=== PATIENT | male | born 1990 | race African-American/Black ===

== ENCOUNTER 2016-12-09 19:55 | Inpatient (IN) | payer OTHER ==
[2016-12-09 22:30] LABS: Urine Drugs of Abuse Note Disclamer
[2016-12-09 22:45] LABS: Bilirubin,Urine NEG (Negative); Blood,Urine LG (Negative); Ketones,Urine 20 mg/dL (Negative); Leukocyte Esterase,Urine NEG (Negative); Mucus,Urine FEW /HPF; Nitrite,Urine NEG (Negative); Urobilinogen,Urine < 2.0 mg/dL (<2.0)
[2016-12-09 23:13] LABS: Basophils % (Auto) 0.1 % (0.0-1.8); Hematocrit 53.1 % (35.5-45.6); Hemoglobin 17.4 gm/dl (11.8-15.2); Mean Corpuscular HGB Conc 33 % (32-34); Mean Corpuscular Hemoglobin 29 pg (28-32); Mean Corpuscular Volume 90 fl (84-94); Platelet Count 390 K/mm3 (140-440); Red Cell Distribution Width 14.2 % (13.2-15.2); White Blood Count 17.6 K/mm3 (4.5-11.0)
[2016-12-09 23:22] LABS: Alanine Aminotransferase 21 units/L (7-56); Albumin 4.9 g/dL (3.9-5); Albumin/Globulin Ratio 1.4 %; Alkaline Phosphatase 75 units/L (35-129); Anion Gap 23 mmol/L; BUN/Creatinine Ratio 25.38; Bilirubin,Total 0.6 mg/dL (0.1-1.2); Blood Urea Nitrogen 33 mg/dL (9-20); Calcium 9.1 mg/dL (8.4-10.2); Carbon Dioxide 22 mmol/L (22-30); Chloride 103.2 mmol/L (98-107); Glucose 129 mg/dL (75-100); Magnesium 2.8 mg/dL (1.7-2.3); Potassium 3.5 mmol/L (3.6-5.0); Sodium 145 mmol/L (137-145); Total Protein 8.3 g/dL (6.3-8.2)
[2016-12-09] MEDS ORDERED: NACL 0.9% 1000 ML 1,000 ML IV ONE (23:59)
[2016-12-10 00:07] LABS: Creatine Kinase MB 14.2 ng/mL (0.0-4.0)
--- NOTE | 2016-12-10 00:44 | Emergency Department Report ---
ED Altered Mental Status HPI - General Chief Complaint: Altered Mental Status Stated Complaint: GENERAL WEAKNESS Time Seen by Provider: 12/09/16 23:49 Source: patient Mode of arrival: Ambulatory Limitations: Language Barrier - History of Present Illness Initial Comments: 25 yo male with no sniffing a past medical history presents to the ER with altered mental status. Patient was found by his father today in the bed where he has soiled himself with urine and stool. Patient opens eyes, makes eye contact, and follows commands but would not speak. No further per history of present illness available at this time. - Related Data Allergies Allergy/AdvReac Type Severity Reaction Status Date / Time No Known Allergies Allergy Unverified 12/09/16 21:17 ED Review of Systems ROS: Stated complaint: GENERAL WEAKNESS Other details as noted in HPI Comment: Unobtainable due to pts medical conditions (ams, nonverbal) ED Past Medical Hx - Past Medical History Previous Medical History?: No - Surgical History Past Surgical History?: No - Social History Smoking Status: Current Every Day Smoker ED Physical Exam - General Limitations: Language Barrier - Other Other exam information: General: Patient is nonverbal Head exam: Atraumatic, normocephalic Eyes exam: Normal appearance, pupils equal reactive to light ENT: Dry mucous membrane Neck exam: Normal inspection, full range of motion, no meningismus nontender Respiratory exam: Clear to auscultation bilateral, no wheezes, rales, crackles Cardiovascular: Normal rate and rhythm, normal heart sounds Abdomen: Soft, nondistended, and nontender, with normal bowel sounds, no rebound, or guarding Extremity: Full range of motion normal inspection no deformity Back: Normal Inspection, full range of motion, no tenderness Neurologic: Alert, eyes open on command, will not speak, no facial droop, 5/5 upper extremity strength, equal 5/5 foot dorsiflexion, sensation intact Psychiatric: normal affect, normal mood Skin: Warm, dry, intact ED Course Vital Signs 12/09/16 12/09/16 12/09/16 21:11 22:06 22:10 Temperature 97.7 F Pulse Rate 134 H 113 H Respiratory 18 26 H 30 H Rate Blood Pressure 124/90 123/83 O2 Sat by Pulse 95 95 Oximetry - Reevaluation(s) Reevaluation #1: 12/10/16 02:28 Patient is seen to be responding more and was trying to speak to a family member at the bedside - Lab Data Result diagrams: 12/09/16 22:13 12/09/16 22:13 Lab Results 12/09/16 12/09/16 12/09/16 Range/Units 22:13 22:13 22:13 WBC 17.6 H (4.5-11.0) K/mm3 RBC 5.90 H (3.65-5.03) M/mm3 Hgb 17.4 H (11.8-15.2) gm/dl Hct 53.1 H (35.5-45.6) % MCV 90 (84-94) fl MCH 29 (28-32) pg MCHC 33 (32-34) % RDW 14.2 (13.2-15.2) % Plt Count 390 (140-440) K/mm3 Lymph % (Auto) 8.6 L (13.4-35.0) % Mineral % (Auto) 7.3 (0.0-7.3) % Eos % (Auto) 0.0 (0.0-4.3) % Baso % (Auto) 0.1 (0.0-1.8) % Lymph # 1.5 (1.2-5.4) K/mm3 Mineral # 1.3 H (0.0-0.8) K/mm3 Eos # 0.0 (0.0-0.4) K/mm3 Baso # 0.0 (0.0-0.1) K/mm3 Seg Neutrophils % 84.0 H (40.0-70.0) % Seg Neutrophils # 14.8 H (1.8-7.7) K/mm3 Sodium (137-145) mmol/L Potassium (3.6-5.0) mmol/L Chloride (98-107) mmol/L Carbon Dioxide (22-30) mmol/L Anion Gap mmol/L BUN (9-20) mg/dL Creatinine (0.8-1.5) mg/dL Estimated GFR ml/min BUN/Creatinine Ratio % Glucose (75-100) mg/dL Lactic Acid (0.7-2.0) mmol/L Calcium (8.4-10.2) mg/dL Magnesium (1.7-2.3) mg/dL Total Bilirubin (0.1-1.2) mg/dL AST (5-40) units/L ALT (7-56) units/L Alkaline Phosphatase (35-129) units/L Ammonia (25-60) umol/L Total Creatine Kinase (55-170) units/L CK-MB (CK-2) (0.0-4.0) ng/mL CK-MB (CK-2) Rel Index (0-4) Total Protein (6.3-8.2) g/dL Albumin (3.9-5) g/dL Albumin/Globulin Ratio % TSH (0.270-4.200) mlU/mL Urine Color Yellow (Yellow) Urine Turbidity Cloudy (Clear) Urine pH 5.0 (5.0-7.0) Ur Specific [place] 1.029 (1.003-1.030) Urine Protein 100 mg/dl (Negative) mg/dL Urine Glucose (UA) Neg (Negative) mg/dL Urine Ketones 20 (Negative) mg/dL Urine Blood Lg (Negative) Urine Nitrite Neg (Negative) Urine Bilirubin Neg (Negative) Urine Urobilinogen < 2.0 (<2.0) mg/dL Ur Leukocyte Esterase Neg (Negative) Urine WBC (Auto) 2.0 (0.0-6.0) /HPF Urine RBC (Auto) 4.0 (0.0-6.0) /HPF U Epithel Cells (Auto) < 1.0 (0-13.0) /HPF Amorphous Crystals Few Urine Mucus Few /HPF Salicylates (2.8-20.0) mg/dL Urine Opiates Screen Presumptive negative Urine Methadone Screen Presumptive negative Acetaminophen (10.0-30.0) ug/mL Ur Barbiturates Screen Presumptive negative Ur Phencyclidine Scrn Presumptive negative Ur Amphetamines Screen Presumptive negative U Benzodiazepines Scrn Presumptive negative Urine Cocaine Screen Presumptive positive U Marijuana (THC) Screen Presumptive negative Drugs of Abuse Note Disclamer Plasma/Serum Alcohol (0-0.07) gm% 12/09/16 12/09/16 12/09/16 Range/Units 22:13 22:13 22:13 WBC (4.5-11.0) K/mm3 RBC (3.65-5.03) M/mm3 Hgb (11.8-15.2) gm/dl Hct (35.5-45.6) % MCV (84-94) fl MCH (28-32) pg MCHC (32-34) % RDW (13.2-15.2) % Plt Count (140-440) K/mm3 Lymph % (Auto) (13.4-35.0) % Mineral % (Auto) (0.0-7.3) % Eos % (Auto) (0.0-4.3) % Baso % (Auto) (0.0-1.8) % Lymph # (1.2-5.4) K/mm3 Mineral # (0.0-0.8) K/mm3 Eos # (0.0-0.4) K/mm3 Baso # (0.0-0.1) K/mm3 Seg Neutrophils % (40.0-70.0) % Seg Neutrophils # (1.8-7.7) K/mm3 Sodium 145 (137-145) mmol/L Potassium 3.5 L (3.6-5.0) mmol/L Chloride 103.2 (98-107) mmol/L Carbon Dioxide 22 (22-30) mmol/L Anion Gap 23 mmol/L BUN 33 H (9-20) mg/dL Creatinine 1.3 (0.8-1.5) mg/dL Estimated GFR > 60 ml/min BUN/Creatinine Ratio 25.38 % Glucose 129 H (75-100) mg/dL Lactic Acid 2.1 H* (0.7-2.0) mmol/L Calcium 9.1 (8.4-10.2) mg/dL Magnesium 2.8 H (1.7-2.3) mg/dL Total Bilirubin 0.6 (0.1-1.2) mg/dL AST 55 H (5-40) units/L ALT 21 (7-56) units/L Alkaline Phosphatase 75 (35-129) units/L Ammonia (25-60) umol/L Total Creatine Kinase (55-170) units/L CK-MB (CK-2) (0.0-4.0) ng/mL CK-MB (CK-2) Rel Index (0-4) Total Protein 8.3 H (6.3-8.2) g/dL Albumin 4.9 (3.9-5) g/dL Albumin/Globulin Ratio 1.4 % TSH 0.099 L (0.270-4.200) mlU/mL Urine Color (Yellow) Urine Turbidity (Clear) Urine pH (5.0-7.0) Ur Specific [place] (1.003-1.030) Urine Protein (Negative) mg/dL Urine Glucose (UA) (Negative) mg/dL Urine Ketones (Negative) mg/dL Urine Blood (Negative) Urine Nitrite (Negative) Urine Bilirubin (Negative) Urine Urobilinogen (<2.0) mg/dL Ur Leukocyte Esterase (Negative) Urine WBC (Auto) (0.0-6.0) /HPF Urine RBC (Auto) (0.0-6.0) /HPF U Epithel Cells (Auto) (0-13.0) /HPF Amorphous Crystals Urine Mucus /HPF Salicylates (2.8-20.0) mg/dL Urine Opiates Screen Urine Methadone Screen Acetaminophen (10.0-30.0) ug/mL Ur Barbiturates Screen Ur Phencyclidine Scrn Ur Amphetamines Screen U Benzodiazepines Scrn Urine Cocaine Screen U Marijuana (THC) Screen Drugs of Abuse Note Plasma/Serum Alcohol (0-0.07) gm% 12/09/16 12/09/16 12/09/16 Range/Units 22:13 22:13 22:13 WBC (4.5-11.0) K/mm3 RBC (3.65-5.03) M/mm3 Hgb (11.8-15.2) gm/dl Hct (35.5-45.6) % MCV (84-94) fl MCH (28-32) pg MCHC (32-34) % RDW (13.2-15.2) % Plt Count (140-440) K/mm3 Lymph % (Auto) (13.4-35.0) % Mineral % (Auto) (0.0-7.3) % Eos % (Auto) (0.0-4.3) % Baso % (Auto) (0.0-1.8) % Lymph # (1.2-5.4) K/mm3 Mineral # (0.0-0.8) K/mm3 Eos # (0.0-0.4) K/mm3 Baso # (0.0-0.1) K/mm3 Seg Neutrophils % (40.0-70.0) % Seg Neutrophils # (1.8-7.7) K/mm3 Sodium (137-145) mmol/L Potassium (3.6-5.0) mmol/L Chloride (98-107) mmol/L Carbon Dioxide (22-30) mmol/L Anion Gap mmol/L BUN (9-20) mg/dL Creatinine (0.8-1.5) mg/dL Estimated GFR ml/min BUN/Creatinine Ratio % Glucose (75-100) mg/dL Lactic Acid (0.7-2.0) mmol/L Calcium (8.4-10.2) mg/dL Magnesium (1.7-2.3) mg/dL Total Bilirubin (0.1-1.2) mg/dL AST (5-40) units/L ALT (7-56) units/L Alkaline Phosphatase (35-129) units/L Ammonia (25-60) umol/L Total Creatine Kinase (55-170) units/L CK-MB (CK-2) (0.0-4.0) ng/mL CK-MB (CK-2) Rel Index (0-4) Total Protein (6.3-8.2) g/dL Albumin (3.9-5) g/dL Albumin/Globulin Ratio % TSH (0.270-4.200) mlU/mL Urine Color (Yellow) Urine Turbidity (Clear) Urine pH (5.0-7.0) Ur Specific [place] (1.003-1.030) Urine Protein (Negative) mg/dL Urine Glucose (UA) (Negative) mg/dL Urine Ketones (Negative) mg/dL Urine Blood (Negative) Urine Nitrite (Negative) Urine Bilirubin (Negative) Urine Urobilinogen (<2.0) mg/dL Ur Leukocyte Esterase (Negative) Urine WBC (Auto) (0.0-6.0) /HPF Urine RBC (Auto) (0.0-6.0) /HPF U Epithel Cells (Auto) (0-13.0) /HPF Amorphous Crystals Urine Mucus /HPF Salicylates < 0.3 L (2.8-20.0) mg/dL Urine Opiates Screen Urine Methadone Screen Acetaminophen < 15.0 (10.0-30.0) ug/mL Ur Barbiturates Screen Ur Phencyclidine Scrn Ur Amphetamines Screen U Benzodiazepines Scrn Urine Cocaine Screen U Marijuana (THC) Screen Drugs of Abuse Note Plasma/Serum Alcohol < 0.01 (0-0.07) gm% 12/09/16 12/09/16 12/10/16 Range/Units 22:13 22:49 00:07 WBC (4.5-11.0) K/mm3 RBC (3.65-5.03) M/mm3 Hgb (11.8-15.2) gm/dl Hct (35.5-45.6) % MCV (84-94) fl MCH (28-32) pg MCHC (32-34) % RDW (13.2-15.2) % Plt Count (140-440) K/mm3 Lymph % (Auto) (13.4-35.0) % Mineral % (Auto) (0.0-7.3) % Eos % (Auto) (0.0-4.3) % Baso % (Auto) (0.0-1.8) % Lymph # (1.2-5.4) K/mm3 Mineral # (0.0-0.8) K/mm3 Eos # (0.0-0.4) K/mm3 Baso # (0.0-0.1) K/mm3 Seg Neutrophils % (40.0-70.0) % Seg Neutrophils # (1.8-7.7) K/mm3 Sodium (137-145) mmol/L Potassium (3.6-5.0) mmol/L Chloride (98-107) mmol/L Carbon Dioxide (22-30) mmol/L Anion Gap mmol/L BUN (9-20) mg/dL Creatinine (0.8-1.5) mg/dL Estimated GFR ml/min BUN/Creatinine Ratio % Glucose (75-100) mg/dL Lactic Acid 1.6 (0.7-2.0) mmol/L Calcium (8.4-10.2) mg/dL Magnesium (1.7-2.3) mg/dL Total Bilirubin (0.1-1.2) mg/dL AST (5-40) units/L ALT (7-56) units/L Alkaline Phosphatase (35-129) units/L Ammonia 55.0 (25-60) umol/L Total Creatine Kinase 4112 H (55-170) units/L CK-MB (CK-2) 14.2 H (0.0-4.0) ng/mL CK-MB (CK-2) Rel Index 0.3 (0-4) Total Protein (6.3-8.2) g/dL Albumin (3.9-5) g/dL Albumin/Globulin Ratio % TSH (0.270-4.200) mlU/mL Urine Color (Yellow) Urine Turbidity (Clear) Urine pH (5.0-7.0) Ur Specific [place] (1.003-1.030) Urine Protein (Negative) mg/dL Urine Glucose (UA) (Negative) mg/dL Urine Ketones (Negative) mg/dL Urine Blood (Negative) Urine Nitrite (Negative) Urine Bilirubin (Negative) Urine Urobilinogen (<2.0) mg/dL Ur Leukocyte Esterase (Negative) Urine WBC (Auto) (0.0-6.0) /HPF Urine RBC (Auto) (0.0-6.0) /HPF U Epithel Cells (Auto) (0-13.0) /HPF Amorphous Crystals Urine Mucus /HPF Salicylates (2.8-20.0) mg/dL Urine Opiates Screen Urine Methadone Screen Acetaminophen (10.0-30.0) ug/mL Ur Barbiturates Screen Ur Phencyclidine Scrn Ur Amphetamines Screen U Benzodiazepines Scrn Urine Cocaine Screen U Marijuana (THC) Screen Drugs of Abuse Note Plasma/Serum Alcohol (0-0.07) gm% 12/10/16 Range/Units 00:20 WBC (4.5-11.0) K/mm3 RBC (3.65-5.03) M/mm3 Hgb (11.8-15.2) gm/dl Hct (35.5-45.6) % MCV (84-94) fl MCH (28-32) pg MCHC (32-34) % RDW (13.2-15.2) % Plt Count (140-440) K/mm3 Lymph % (Auto) (13.4-35.0) % Mineral % (Auto) (0.0-7.3) % Eos % (Auto) (0.0-4.3) % Baso % (Auto) (0.0-1.8) % Lymph # (1.2-5.4) K/mm3 Mineral # (0.0-0.8) K/mm3 Eos # (0.0-0.4) K/mm3 Baso # (0.0-0.1) K/mm3 Seg Neutrophils % (40.0-70.0) % Seg Neutrophils # (1.8-7.7) K/mm3 Sodium (137-145) mmol/L Potassium (3.6-5.0) mmol/L Chloride (98-107) mmol/L Carbon Dioxide (22-30) mmol/L Anion Gap mmol/L BUN (9-20) mg/dL Creatinine (0.8-1.5) mg/dL Estimated GFR ml/min BUN/Creatinine Ratio % Glucose (75-100) mg/dL Lactic Acid 1.6 (0.7-2.0) mmol/L Calcium (8.4-10.2) mg/dL Magnesium (1.7-2.3) mg/dL Total Bilirubin (0.1-1.2) mg/dL AST (5-40) units/L ALT (7-56) units/L Alkaline Phosphatase (35-129) units/L Ammonia (25-60) umol/L Total Creatine Kinase (55-170) units/L CK-MB (CK-2) (0.0-4.0) ng/mL CK-MB (CK-2) Rel Index (0-4) Total Protein (6.3-8.2) g/dL Albumin (3.9-5) g/dL Albumin/Globulin Ratio % TSH (0.270-4.200) mlU/mL Urine Color (Yellow) Urine Turbidity (Clear) Urine pH (5.0-7.0) Ur Specific [place] (1.003-1.030) Urine Protein (Negative) mg/dL Urine Glucose (UA) (Negative) mg/dL Urine Ketones (Negative) mg/dL Urine Blood (Negative) Urine Nitrite (Negative) Urine Bilirubin (Negative) Urine Urobilinogen (<2.0) mg/dL Ur Leukocyte Esterase (Negative) Urine WBC (Auto) (0.0-6.0) /HPF Urine RBC (Auto) (0.0-6.0) /HPF U Epithel Cells (Auto) (0-13.0) /HPF Amorphous Crystals Urine Mucus /HPF Salicylates (2.8-20.0) mg/dL Urine Opiates Screen Urine Methadone Screen Acetaminophen (10.0-30.0) ug/mL Ur Barbiturates Screen Ur Phencyclidine Scrn Ur Amphetamines Screen U Benzodiazepines Scrn Urine Cocaine Screen U Marijuana (THC) Screen Drugs of Abuse Note Plasma/Serum Alcohol (0-0.07) gm% - EKG Data -: EKG Interpreted by Me (sinus tach 119 rightward axis) - Radiology Data Radiology results: report reviewed (ct head: naf) - Medical Decision Making Patient will be admitted to the hospital for altered mental status. Only significant finding is positive UDS for cocaine, elevated CKs, and dehydration. IV fluids initiated. - Differential Diagnosis intracranial hemorrhage, intracranial mass, encephalopathy, drug use Critical Care Time: No Critical care attestation.: If time is entered above; I have spent that time in minutes in the direct care of this critically ill patient, excluding procedure time. ED Disposition Clinical Impression: Altered mental state, Elevated CK, Cocaine abuse, Dehydration, Low TSH level Disposition: OP ADMITTED IP TO THIS HOSP Is pt being admited?: Yes Condition: Stable Time of Disposition: 02:29 (Dr Guan/hosp)
--- NOTE | 2016-12-10 01:12 | Cat Scan Report ---
FINAL REPORT EXAM: CT HEAD/BRAIN WO CON HISTORY: ams COMPARISON: None available. TECHNIQUE: Axial images obtained skull base through vertex. FINDINGS: No acute intracranial hemorrhage, midline shift or pathologic extra axial fluid collection. Ventricles and cisterns are normal in size and configuration for the patient's age. Cortez-white differentiation preserved. Calvarium grossly intact. Focal prominence of the extra-axial CSF space along the right parietal cortex. There may be underlying arachnoid cyst measuring 1.1 x 0.9 centimeters. Mild to moderate mucosal thickening the visualized paranasal sinuses. Mastoid air cells are clear. Visualized orbits are grossly unremarkable. IMPRESSION: No grossly acute intracranial abnormality. Focal prominence of the extra-axial CSF space along the right parietal convexity. Probable underlying arachnoid cyst measuring 1.1 x 0.9 centimeters, benign finding.
--- NOTE | 2016-12-10 03:47 | Admit Criteria Form ---
Admission Criteria Documentation: SUBSTANCE ABUSE Clinical Indications for Admission to Inpatient Care (Place 'X' for any and all applicable criteria): Admission is indicated due to ANY ONE of the following(1)(2)(3)(4)(5): [ ]I. Delirium due to alcohol or sedative A withdrawal B ( Also use Delirium Criteria as appropriate)1,6,7 [ ]II. Alcohol or sedative withdrawal with high-risk indicator as manifested by ALL of the following1,3,6,7 [ ]a) Signs of withdrawal as indicated by ANY ONE of the following: [ ]i) Heart rate greater than 100 beats per minute [ ]ii) Nausea or vomiting [ ]iii) Other physical signs of alcohol or sedative withdrawal [ ]iv) Tremor [ ](v) Increased perspiration [ ]b) Elevated risk due to a historical or comorbid factor as indicated by ANY ONE of the following: [ ]i) History of delirium due to alcohol or sedative withdrawal [ ]ii) History of repetitive seizures due to alcohol or sedative withdrawal C [ ]iii) Intrinsic seizure disorder (epilepsy) [ ]iv) [ ]v) Comorbid medical condition that can be dangerously destabilized by alcohol or sedative withdrawal (eg, severe cardiac disease) [ ]III. Severe alcohol or sedative withdrawal that is unmanageable at lower level of care, as manifested by ALL of the following1,3,6,7 [ ]a) Marked signs of withdrawal as indicated by ANY ONE of the following: [ ]i) Heart rate greater than 120 beats per minute [ ]ii) Vomiting [ ]iii) Grossly visible tremor [ ]iv) Profuse perspiration [ ]v) Temperature greater than 38.3 degrees C (101 degrees F) [ ]vi) Other marked physical signs of alcohol or sedative withdrawal [ ]b) Signs of withdrawal which require inpatient treatment as indicated by ANY ONE of the following: [ ]i) Inadequate response to pharmacotherapy in emergency department or other appropriate lower level of care [ ]ii) Lower level of care not feasible or appropriate (eg, unavailable or inappropriate to patient condition or treatment history) [ ]IV. Severely complicated opioid withdrawal that requires [id number] care as manifested by ALL of the following 1,4,7,11 [ ]a) Vomiting or diarrhea due to opioid withdrawal [ ]b) Marked dehydration or electrolyte abnormality that cannot be corrected (to near normal) in an emergency department or other ambulatory setting (eg, serum K<2.5 mEq/L , serum Na <130 mEq/L [ X]V. Acute toxicity or instability from substance use requiring inpatient care (eg, altered mental status, respiratory depression) that has had inadequate response to, or is judged inappropriate for, treatment at lower level of care (eg, emergency department, observation care) [ ]. Other inpatient medical or psychiatric care is needed due to risk or comorbidity as indicated by ALL of the following(18): [ ]a) Treatment is needed because of patient risk due to ANY ONE of the following: [ ]i) Medical condition (eg, severe cardiac disease) that requires 24-hour monitoring and treatment due to danger of destabilization by alcohol or sedative withdrawal is present [ ]ii) Imminent danger to self is present due to ANY ONE of the following(19)(20)(21): [ ]1) Imminent risk for recurrence of Suicide attempt or act of serious Harm to self is present as indicated by ALL of the following: [ ]A. There has been very recent Suicide attempt or deliberate act of serious Harm to self. [ ]B. There has not been Sufficient relief of the factors that precipitated the attempt or act. [ ]2) Current plan for suicide or serious Harm to self is present. [ ]3) Command auditory hallucinations for suicide or serious Harm to self are present. [ ]4) Patient has persistent Thoughts of suicide or serious Harm to self that cannot be adequately monitored at lower level of care due to ANY ONE of the following[E]: [ ]A. Insufficient behavioral care is available to meet patient needs (such as required provider or lower level facility is not available). [ ]B. Patient characteristics such as high impulsivity or unreliability are present. [ ]C. Environment does not support recovery. [ ]D. Ready access to lethal means [ ]iii) Imminent danger to others is present due to ANY ONE of the following(19)(23)(24): [ ]1) Imminent risk for recurrence of attempt to seriously Harm another is present as indicated by ALL of the following: [ ]A. There has been very recent attempt to seriously Harm another. [ ]B. There has not been Sufficient relief of factors that precipitated the attempt or act. [ ]2) Current plan for homicide or serious Harm to another is present. [ ]3) Command auditory hallucinations or paranoid delusions contributing to risk for homicide or serious Harm to another are present. [ ]4) Patient has persistent thoughts of homicide or serious Harm to another that cannot be adequately monitored at lower level of care because of ANY ONE of the following[E]: [ ]A. Insufficient behavioral care is available to meet patient needs (such as required provider or lower level facility is not available). [ ]B. High impulsivity or unreliability is present. [ ]C. Environment does not support recovery. [ ]D. Ready access to lethal means [ ]iv) Severe dysfunction in daily living related to substance use disorder as indicated by ANY ONE of the following(33): [ ]a) Extreme deterioration in social interactions (eg , threatening behaviors with little or no provocation) [ ]b) Complete withdrawal from all social interactions [ ]c) Complete neglect of self-care with associated impairment in physical status [ ]d) Extreme disruption in vegetative function (eg, life-sustaining functions such as eating) [ ]e) Complete inability to maintain any appropriate aspect of personal responsibility in any adult roles (eg, occupational, parental ) [ ]v) Other emotional, behavioral, or cognitive symptoms of sufficient severity to preclude ability to engage in recovery without 24-hour monitoring and treatment are present. [ ]vi) Patient requires monitoring due to substance use in combination with medical, psychiatric, or environmental factors that prevent adequate management at lower level of care as indicated by ALL of the following: [ ]1) Significant substance use effects, medical conditions, or psychiatric comorbidities are present as indicated by ANY ONE of the following [ ]A. Substance toxicity or withdrawal requires medical monitoring. [ ]B. Medical comorbidity requires medical monitoring for destabilization due to alcohol or sedative withdrawal. [ ]C. Emotional, behavioral, or cognitive symptoms of sufficient severity to limit or preclude ability to engage in treatment are present. [ ]2) Conditions, barriers, or environmental factors preventing treatment at lower level of care are present as indicated by ANY ONE of the following: [ ]A. Psychiatric comorbidity or opposition to treatment requires 24-hour setting to ensure adherence with medical treatment or adequate motivating interventions. [ ]B. Severe behavioral problems (eg, escalating relapse behaviors, acute psychiatric or substance use crisis, inability to recognize signs and symptoms of relapse ) require 24-hour setting for relapse prevention.[F] [ ]C. Living environment outside of 24-hour setting prevents recovery (eg, abuse, victimization, patient inability to cope). [ ]b Treatment situation and needs are appropriate for inpatient level ( instead of using lower level of care) as indicated by ANY ONE of the following( 25)(26)(27): [ ]i) Patient is unwilling to participate voluntarily and requires treatment (eg, legal commitment) in involuntary unit.(23) [ ]ii) Voluntary treatment at lower level is not feasible (eg, lower level care unavailable or inappropriate for patient condition). [ ]iii) Physical restraint, seclusion, or other involuntary control is needed (eg, actively violent patient for whom treatment in an involuntary unit is deemed necessary in accord with applicable medical and legal criteria).(23) [ ]iv) [id number] medical or nursing care to address symptoms and initiate interventions is required; specific need is identified. Extended stay beyond goal length of stay may be needed for: [ ]a) Onset of delirium [ ]b) Recurrent seizures [ ]c) Persistent severe alcohol or sedative withdrawal [ ]d) Persistent dangerous behavior The original [facility] [employer] content created by [employer] has been revised. The portions of the content which have been revised are identified through the use of italic text or in bold, and [facility] has neither reviewed nor approved the modified material. All other unmodified content is copyright [facility] Please see references footnoted in the original [facility] [employer] edition 2016 Admission Criteria Met: Yes
--- NOTE | 2016-12-10 06:16 | History and Physical Report ---
History of Present Illness Date of examination: 12/10/16 Date of admission: 12/10/16 02:30 Chief complaint: AMS History of present illness: 25-year-old Frisian male with no significant past medical history brought by his family after they found out that he was altered lying on bed recent afternoon. Patient was not able to communicate. Per his families the patient was healthy before this incident. When I examined him he follow commands but not able to talk. Past History Past Medical History: No medical history Past Surgical History: No surgical history Social history: smoking, full code, other (cocaine abuse) Family history: denies: cancer, stroke Medications and Allergies Allergies Allergy/AdvReac Type Severity Reaction Status Date / Time No Known Allergies Allergy Verified 12/10/16 06:09 Active Meds: Active Medications Sodium Chloride (Nacl 0.9% 1000 Ml) 1,000 mls @ 150 mls/hr IV DIRECT [facility] Review of Systems ROS unobtainable: due to mental status (couldn't obtained because of ams) Cardiovascular: no chest pain, no orthopnea Exam - Physical Exam Narrative exam: Not in cardiopulmonary distress. The patient appeared emaciated. Vital signs as documented. Head exam is unremarkable. No scleral icterus . Neck is without jugular venous distension, thyromegaly, or carotid bruits. Lungs are clear to auscultation. Cardiac exam reveals regular rate and Rhythm. First and second heart sounds normal. No murmurs, rubs or gallops. Abdominal exam reveals normal bowel sounds, no masses, no organomegaly and no aortic enlargement. Extremities are nonedematous and both femoral and pedal pulses are normal. REPATCHER: Alert but not able communicate. No focal weakness. - Constitutional Vitals: Temp Pulse Resp BP Pulse Ox 99.2 F 107 H 22 129/78 97 12/10/16 05:00 12/10/16 05:28 12/10/16 05:28 12/10/16 05:00 12/10/16 05:00 Results - Labs CBC & Chem 7: 12/09/16 22:13 12/09/16 22:13 Labs: Laboratory Last Values WBC 17.6 K/mm3 (4.5-11.0) H 12/09/16 22:13 RBC 5.90 M/mm3 (3.65-5.03) H 12/09/16 22:13 Hgb 17.4 gm/dl (11.8-15.2) H 12/09/16 22:13 Hct 53.1 % (35.5-45.6) H 12/09/16 22:13 MCV 90 fl (84-94) 12/09/16 22:13 MCH 29 pg (28-32) 12/09/16 22:13 MCHC 33 % (32-34) 12/09/16 22:13 RDW 14.2 % (13.2-15.2) 12/09/16 22:13 Plt Count 390 K/mm3 (140-440) 12/09/16 22:13 Lymph % (Auto) 8.6 % (13.4-35.0) L 12/09/16 22:13 [place] % (Auto) 7.3 % (0.0-7.3) 12/09/16 22:13 Eos % (Auto) 0.0 % (0.0-4.3) 12/09/16 22:13 Baso % (Auto) 0.1 % (0.0-1.8) 12/09/16 22:13 Lymph # 1.5 K/mm3 (1.2-5.4) 12/09/16 22:13 [place] # 1.3 K/mm3 (0.0-0.8) H 12/09/16 22:13 Eos # 0.0 K/mm3 (0.0-0.4) 12/09/16 22:13 Baso # 0.0 K/mm3 (0.0-0.1) 12/09/16 22:13 Seg Neutrophils % 84.0 % (40.0-70.0) H 12/09/16 22:13 Seg Neutrophils # 14.8 K/mm3 (1.8-7.7) H 12/09/16 22:13 Sodium 145 mmol/L (137-145) 12/09/16 22:13 Potassium 3.5 mmol/L (3.6-5.0) L 12/09/16 22:13 Chloride 103.2 mmol/L (98-107) 12/09/16 22:13 Carbon Dioxide 22 mmol/L (22-30) 12/09/16 22:13 Anion Gap 23 mmol/L 12/09/16 22:13 BUN 33 mg/dL (9-20) H 12/09/16 22:13 Creatinine 1.3 mg/dL (0.8-1.5) 12/09/16 22:13 Estimated GFR > 60 ml/min 12/09/16 22:13 BUN/Creatinine Ratio 25.38 % 12/09/16 22:13 Glucose 129 mg/dL (75-100) H 12/09/16 22:13 Lactic Acid 1.6 mmol/L (0.7-2.0) 12/10/16 00:20 Calcium 9.1 mg/dL (8.4-10.2) 12/09/16 22:13 Magnesium 2.8 mg/dL (1.7-2.3) H 12/09/16 22:13 Total Bilirubin 0.6 mg/dL (0.1-1.2) 12/09/16 22:13 AST 55 units/L (5-40) H 12/09/16 22:13 ALT 21 units/L (7-56) 12/09/16 22:13 Alkaline Phosphatase 75 units/L (35-129) 12/09/16 22:13 Ammonia 55.0 umol/L (25-60) 12/10/16 00:07 Total Creatine Kinase 4112 units/L (55-170) H 12/09/16 22:13 CK-MB (CK-2) 14.2 ng/mL (0.0-4.0) H 12/09/16 22:13 CK-MB (CK-2) Rel Index 0.3 (0-4) 12/09/16 22:13 Total Protein 8.3 g/dL (6.3-8.2) H 12/09/16 22:13 Albumin 4.9 g/dL (3.9-5) 12/09/16 22:13 Albumin/Globulin Ratio 1.4 % 12/09/16 22:13 TSH 0.099 mlU/mL (0.270-4.200) L 12/09/16 22:13 Thyroxine (T4) 5.2 ug/dL (4.0-12.0) 12/10/16 00:54 Urine Color Yellow (Yellow) 12/09/16 22:13 Urine Turbidity Cloudy (Clear) 12/09/16 22:13 Urine pH 5.0 (5.0-7.0) 12/09/16 22:13 Ur Specific [place] 1.029 (1.003-1.030) 12/09/16 22:13 Urine Protein 100 mg/dl mg/dL (Negative) 12/09/16 22:13 Urine Glucose (UA) Neg mg/dL (Negative) 12/09/16 22:13 Urine Ketones 20 mg/dL (Negative) 12/09/16 22:13 Urine Blood Lg (Negative) 12/09/16 22:13 Urine Nitrite Neg (Negative) 12/09/16 22:13 Urine Bilirubin Neg (Negative) 12/09/16 22:13 Urine Urobilinogen < 2.0 mg/dL (<2.0) 12/09/16 22:13 Ur Leukocyte Esterase Neg (Negative) 12/09/16 22:13 Urine WBC (Auto) 2.0 /HPF (0.0-6.0) 12/09/16 22:13 Urine RBC (Auto) 4.0 /HPF (0.0-6.0) 12/09/16 22:13 U Epithel Cells (Auto) < 1.0 /HPF (0-13.0) 12/09/16 22:13 Amorphous Crystals Few 12/09/16 22:13 Urine Mucus Few /HPF 12/09/16 22:13 Salicylates < 0.3 mg/dL (2.8-20.0) L 12/09/16 22:13 Urine Opiates Screen Presumptive negative 12/09/16 22:13 Urine Methadone Screen Presumptive negative 12/09/16 22:13 Acetaminophen < 15.0 ug/mL (10.0-30.0) 12/09/16 22:13 Ur Barbiturates Screen Presumptive negative 12/09/16 22:13 Ur Phencyclidine Scrn Presumptive negative 12/09/16 22:13 Ur Amphetamines Screen Presumptive negative 12/09/16 22:13 U Benzodiazepines Scrn Presumptive negative 12/09/16 22:13 Urine Cocaine Screen Presumptive positive 12/09/16 22:13 U Marijuana (THC) Screen Presumptive negative 12/09/16 22:13 Drugs of Abuse Note Disclamer 12/09/16 22:13 Plasma/Serum Alcohol < 0.01 gm% (0-0.07) 12/09/16 22:13 - Imaging and Cardiology CT Scan - head: report reviewed Assessment and Plan Assessment and plan: Altered mental status Cocaine abuse Leukocytosis Generalized Weakness Rhabdomyolysis - We'll give him IV fluid - Physical therapy - Mental health evaluation - Neurology evaluation - Speech evaluation - Blood cultures pending - Urine is negative for infection - UDS is positive for cocaine Prophylaxis - Lovenox Disposition - Admit to the floor Advance Directives: Yes VTE prophylaxis?: Chemical Plan of care discussed with patient/family: Yes
[2016-12-10] MEDS: NACL 0.9% 1000 ML 1,000 ML IV SCH (07:03)
[2016-12-10 10:37] LABS: Basophils % (Auto) 0.3 % (0.0-1.8); Hematocrit 46.3 % (35.5-45.6); Hemoglobin 15.1 gm/dl (11.8-15.2); Mean Corpuscular HGB Conc 33 % (32-34); Mean Corpuscular Hemoglobin 29 pg (28-32); Mean Corpuscular Volume 89 fl (84-94); Platelet Count 303 K/mm3 (140-440); Red Blood Count 5.19 M/mm3 (3.65-5.03); Red Cell Distribution Width 14.5 % (13.2-15.2); White Blood Count 12.9 K/mm3 (4.5-11.0)
--- NOTE | 2016-12-10 16:08 | Event Note ---
Date: 12/10/16 patient seen and examined, still aphasic. father present, will obtain MRI brain and EEG. continue close monitoring and current plan of care.
--- NOTE | 2016-12-10 19:12 | Magnetic Resonance Report ---
FINAL REPORT EXAM: MR BRAIN WO CON HISTORY: encepahalopathy, aphasic TECHNIQUE: MRI brain without contrast PRIORS: Correlated with CT scan the same date FINDINGS: There is normal signal throughout the brain parenchyma. No evidence for brain edema pattern or mass effect. Ventricles and sulci are within normal limits. No evidence for acute intra-axial or extra-axial hemorrhage. No evidence for acute restriction on diffusion-weighted study. Brainstem and posterior fossa structures are unremarkable. IMPRESSION: Negative. No focal abnormality identified
[2016-12-10] MEDS: LOVENOX SUB-Q SCH (21:33)
[2016-12-11] MEDS: NACL 0.9% 1000 ML 1,000 ML IV SCH ×2 (05:23→21:55)
[2016-12-11] MEDS ORDERED: ATIVAN IV ONE (16:19)
--- NOTE | 2016-12-11 16:31 | Progress Note ---
Assessment and Plan Assessment and plan: 25-year-old [place] male with no significant past medical history brought by his family after they found out that he was altered lying on bed recent afternoon. Patient was not able to communicate. Per his family the patient was healthy before this incident. * Acute metabolic and toxic encephalopathy * Malignant catatonic state * Cocaine abuse * Leukocytosis * Rhabdomyolysis * Hypokalemia Plan * MRI reviewed and negative. If no change in symptomatology will obtain a second MRI with contrast in a.m. * Increase IV fluids to 250 mL an hour monitor creatinine kinase and renal function * Speech therapy as ordered * Cultures reviewed and negative * Awaiting neurology evaluation and psychiatrist evaluation * Plan of care discussed with the family * Father was in the room also other girlfriend who inadvertently found the patient * DVT and GI prophylaxis History Interval history: Patient seen and examined this morning still not verbal. But responds by following commands. No other adverse events reported by nursing staff. Hospitalist Physical - Physical exam Narrative exam: VITAL SIGNS: Reviewed. GENERAL: The patient appeared well nourished and normally developed. Vital signs as documented. HEAD: No signs of head trauma. EYES: Pupils are equal. Extraocular motions intact. EARS: Hearing grossly intact. MOUTH: Oropharynx is normal. NECK: No adenopathy, no JVD. CHEST: Chest with clear breath sounds bilaterally. No wheezes, rales, or rhonchi. CARDIAC: Regular rate and rhythm. S1 and S2, without murmurs, gallops, or rubs. VASCULAR: No Edema. Peripheral pulses normal and equal in all extremities. ABDOMEN: Soft, without detectable tenderness. No sign of distention. No rebound or guarding, and no masses palpated. Bowel Sounds normal. MUSCULOSKELETAL: Good range of motion of all major joints. Extremities without clubbing, cyanosis or edema. NEUROLOGIC EXAM: Alert and oriented x 3. No focal sensory or strength deficits. Aphasic. Follows commands. PSYCHIATRIC: Mood normal. SKIN: No rash or lesions. - Constitutional Vitals: Temp Pulse Resp BP Pulse Ox 98.2 F 76 18 118/80 100 12/11/16 14:11 12/11/16 14:11 12/11/16 14:11 12/11/16 14:11 12/11/16 14:11 Results - Labs CBC & Chem 7: 12/10/16 09:56 12/09/16 22:13 Labs: Laboratory Last Values WBC 12.9 K/mm3 (4.5-11.0) H 12/10/16 09:56 RBC 5.19 M/mm3 (3.65-5.03) H 12/10/16 09:56 Hgb 15.1 gm/dl (11.8-15.2) 12/10/16 09:56 Hct 46.3 % (35.5-45.6) H D 12/10/16 09:56 MCV 89 fl (84-94) 12/10/16 09:56 MCH 29 pg (28-32) 12/10/16 09:56 MCHC 33 % (32-34) 12/10/16 09:56 RDW 14.5 % (13.2-15.2) 12/10/16 09:56 Plt Count 303 K/mm3 (140-440) 12/10/16 09:56 Lymph % (Auto) 11.8 % (13.4-35.0) L 12/10/16 09:56 [place] % (Auto) 8.9 % (0.0-7.3) H 12/10/16 09:56 Eos % (Auto) 0.0 % (0.0-4.3) 12/10/16 09:56 Baso % (Auto) 0.3 % (0.0-1.8) 12/10/16 09:56 Lymph # 1.5 K/mm3 (1.2-5.4) 12/10/16 09:56 [place] # 1.1 K/mm3 (0.0-0.8) H 12/10/16 09:56 Eos # 0.0 K/mm3 (0.0-0.4) 12/10/16 09:56 Baso # 0.0 K/mm3 (0.0-0.1) 12/10/16 09:56 Seg Neutrophils % 79.0 % (40.0-70.0) H 12/10/16 09:56 Seg Neutrophils # 10.2 K/mm3 (1.8-7.7) H 12/10/16 09:56 Sodium 145 mmol/L (137-145) 12/09/16 22:13 Potassium 3.5 mmol/L (3.6-5.0) L 12/09/16 22:13 Chloride 103.2 mmol/L (98-107) 12/09/16 22:13 Carbon Dioxide 22 mmol/L (22-30) 12/09/16 22:13 Anion Gap 23 mmol/L 12/09/16 22:13 BUN 33 mg/dL (9-20) H 12/09/16 22:13 Creatinine 1.3 mg/dL (0.8-1.5) 12/09/16 22:13 Estimated GFR > 60 ml/min 12/09/16 22:13 BUN/Creatinine Ratio 25.38 % 12/09/16 22:13 Glucose 129 mg/dL (75-100) H 12/09/16 22:13 Lactic Acid 1.6 mmol/L (0.7-2.0) 12/10/16 00:20 Calcium 9.1 mg/dL (8.4-10.2) 12/09/16 22:13 Magnesium 2.8 mg/dL (1.7-2.3) H 12/09/16 22:13 Total Bilirubin 0.6 mg/dL (0.1-1.2) 12/09/16 22:13 AST 55 units/L (5-40) H 12/09/16 22:13 ALT 21 units/L (7-56) 12/09/16 22:13 Alkaline Phosphatase 75 units/L (35-129) 12/09/16 22:13 Ammonia 55.0 umol/L (25-60) 12/10/16 00:07 Total Creatine Kinase 6779 units/L (55-170) H 12/10/16 09:56 CK-MB (CK-2) 14.2 ng/mL (0.0-4.0) H 12/09/16 22:13 CK-MB (CK-2) Rel Index 0.3 (0-4) 12/09/16 22:13 Total Protein 8.3 g/dL (6.3-8.2) H 12/09/16 22:13 Albumin 4.9 g/dL (3.9-5) 12/09/16 22:13 Albumin/Globulin Ratio 1.4 % 12/09/16 22:13 TSH 0.099 mlU/mL (0.270-4.200) L 12/09/16 22:13 Thyroxine (T4) 5.2 ug/dL (4.0-12.0) 12/10/16 00:54 Urine Color Yellow (Yellow) 12/09/16 22:13 Urine Turbidity Cloudy (Clear) 12/09/16 22:13 Urine pH 5.0 (5.0-7.0) 12/09/16 22:13 Ur Specific [place] 1.029 (1.003-1.030) 12/09/16 22:13 Urine Protein 100 mg/dl mg/dL (Negative) 12/09/16 22:13 Urine Glucose (UA) Neg mg/dL (Negative) 12/09/16 22:13 Urine Ketones 20 mg/dL (Negative) 12/09/16 22:13 Urine Blood Lg (Negative) 12/09/16 22:13 Urine Nitrite Neg (Negative) 12/09/16 22:13 Urine Bilirubin Neg (Negative) 12/09/16 22:13 Urine Urobilinogen < 2.0 mg/dL (<2.0) 12/09/16 22:13 Ur Leukocyte Esterase Neg (Negative) 12/09/16 22:13 Urine WBC (Auto) 2.0 /HPF (0.0-6.0) 12/09/16 22:13 Urine RBC (Auto) 4.0 /HPF (0.0-6.0) 12/09/16 22:13 U Epithel Cells (Auto) < 1.0 /HPF (0-13.0) 12/09/16 22:13 Amorphous Crystals Few 12/09/16 22:13 Urine Mucus Few /HPF 12/09/16 22:13 Salicylates < 0.3 mg/dL (2.8-20.0) L 12/09/16 22:13 Urine Opiates Screen Presumptive negative 12/09/16 22:13 Urine Methadone Screen Presumptive negative 12/09/16 22:13 Acetaminophen < 15.0 ug/mL (10.0-30.0) 12/09/16 22:13 Ur Barbiturates Screen Presumptive negative 12/09/16 22:13 Ur Phencyclidine Scrn Presumptive negative 12/09/16 22:13 Ur Amphetamines Screen Presumptive negative 12/09/16 22:13 U Benzodiazepines Scrn Presumptive negative 12/09/16 22:13 Urine Cocaine Screen Presumptive positive 12/09/16 22:13 U Marijuana (THC) Screen Presumptive negative 12/09/16 22:13 Drugs of Abuse Note Disclamer 12/09/16 22:13 Plasma/Serum Alcohol < 0.01 gm% (0-0.07) 12/09/16 22:13 - Imaging and Cardiology MRI - head: image reviewed (no acute pathology)
[2016-12-11] MEDS: LOVENOX SUB-Q SCH (21:54)
[2016-12-12] MEDS: NACL 0.9% 1000 ML 1,000 ML IV SCH ×2 (05:20→21:18)
[2016-12-12 05:51] LABS: Hematocrit 45.6 % (35.5-45.6); Hemoglobin 14.6 gm/dl (11.8-15.2); Mean Corpuscular HGB Conc 32 % (32-34); Mean Corpuscular Hemoglobin 29 pg (28-32); Mean Corpuscular Volume 91 fl (84-94); Platelet Count 226 K/mm3 (140-440); Red Blood Count 5.01 M/mm3 (3.65-5.03); Red Cell Distribution Width 13.6 % (13.2-15.2); White Blood Count 11.6 K/mm3 (4.5-11.0)
[2016-12-12 06:14] LABS: Alanine Aminotransferase 60 units/L (7-56); Albumin 3.9 g/dL (3.9-5); Albumin/Globulin Ratio 1.7 %; Alkaline Phosphatase 49 units/L (35-129); Anion Gap 17 mmol/L; BUN/Creatinine Ratio 25.71; Blood Urea Nitrogen 18 mg/dL (9-20); Calcium 8.2 mg/dL (8.4-10.2); Carbon Dioxide 23 mmol/L (22-30); Chloride 112.7 mmol/L (98-107); Glucose 94 mg/dL (75-100); Potassium 3.8 mmol/L (3.6-5.0); Sodium 149 mmol/L (137-145); Total Protein 6.2 g/dL (6.3-8.2)
[2016-12-12 06:38] LABS: Creatine Kinase 5631 units/L (55-170)
[2016-12-12 07:56] LABS: Bilirubin,Total 0.9 mg/dL (0.1-1.2)
[2016-12-12] MEDS ORDERED: DILANTIN 1,000 MG in NACL 0.9% 250ML 250 ML IV ONE (08:26)
--- NOTE | 2016-12-12 12:50 | Consultation ---
History of Present Illness - Reason for Consult Consult date: 12/12/16 seizures - History of Present Illness seizures noted on the EEG suspect cause is cocaine abuse of note EEG very abnormal yet CT MR of the brain are normal rec keppra as therapy Past History Past Medical History: No medical history Past Surgical History: No surgical history Social history: smoking, full code, other (cocaine abuse) Family history: denies: cancer, stroke Medications and Allergies Allergies Allergy/AdvReac Type Severity Reaction Status Date / Time No Known Allergies Allergy Verified 12/10/16 06:09 Active Meds: Active Medications Enoxaparin Sodium (Lovenox) 40 mg SUB-Q QDAY@2200 [facility] Last Admin: 12/11/16 21:54 Dose: 40 mg Sodium Chloride (Nacl 0.9% 1000 Ml) 1,000 mls @ 250 mls/hr IV DIRECT [facility] Last Admin: 12/12/16 05:20 Dose: 150 mls/hr Phenytoin (Dilantin) 100 mg IV Q8HR [facility] Exam - Constitutional Vitals: Temp Pulse Resp BP Pulse Ox 98.6 F 62 16 105/64 97 12/12/16 08:50 12/12/16 11:12 12/12/16 08:50 12/12/16 08:50 12/12/16 08:50 Results - Labs CBC & Chem 7: 12/12/16 04:49 12/12/16 04:49 Labs: Abnormal lab results 12/12/16 12/12/16 Range/Units 04:49 04:49 WBC 11.6 H (4.5-11.0) K/mm3 Sodium 149 H (137-145) mmol/L Chloride 112.7 H (98-107) mmol/L Creatinine 0.7 L (0.8-1.5) mg/dL Calcium 8.2 L (8.4-10.2) mg/dL AST 106 H (5-40) units/L ALT 60 H (7-56) units/L Total Creatine Kinase 5631 H (55-170) units/L Total Protein 6.2 L D (6.3-8.2) g/dL
[2016-12-12] MEDS: DILANTIN IV SCH ×2 (13:09→21:18)
--- NOTE | 2016-12-12 15:56 | Progress Note ---
Assessment and Plan Assessment and plan: 25-year-old [place] male with no significant past medical history brought by his family after they found out that he was altered lying on bed recent afternoon. Patient was not able to communicate. Per his family the patient was healthy before this incident. * Acute metabolic and toxic encephalopathy * Probable status epilepticus * Malignant catatonic state * Cocaine abuse * Leukocytosis * Rhabdomyolysis * Hypokalemia Plan * MRI reviewed and negative. * EEG as significantly abnormal per neurologist * We'll start patient on Keppra IV loading dose and then maintenance. * If no improvement by a.m. we'll repeat MRI of the brain as time with contrast. * Increase IV fluids to 250 mL an hour monitor creatinine kinase and renal function * Speech therapy as ordered * Cultures reviewed and negative * Awaiting psychiatrist evaluation * Plan of care discussed with the family-mother * DVT and GI prophylaxis History Interval history: Patient seen and examined this morning still not verbal. Still following commands. No other adverse events reported by nursing staff. Discussed with the mother Hospitalist Physical - Physical exam Narrative exam: VITAL SIGNS: Reviewed. GENERAL: The patient appeared well nourished and normally developed. Vital signs as documented. HEAD: No signs of head trauma. EYES: Pupils are equal. Extraocular motions intact. EARS: Hearing grossly intact. MOUTH: Oropharynx is normal. NECK: No adenopathy, no JVD. CHEST: Chest with clear breath sounds bilaterally. No wheezes, rales, or rhonchi. CARDIAC: Regular rate and rhythm. S1 and S2, without murmurs, gallops, or rubs. VASCULAR: No Edema. Peripheral pulses normal and equal in all extremities. ABDOMEN: Soft, without detectable tenderness. No sign of distention. No rebound or guarding, and no masses palpated. Bowel Sounds normal. MUSCULOSKELETAL: Good range of motion of all major joints. Extremities without clubbing, cyanosis or edema. NEUROLOGIC EXAM: Alert. No focal sensory or strength deficits. Aphasic. Follows commands. PSYCHIATRIC: Mood unable to assess. SKIN: No rash or lesions. - Constitutional Vitals: Temp Pulse Resp BP Pulse Ox 98.5 F 70 16 117/80 98 12/12/16 13:28 12/12/16 13:28 12/12/16 13:28 12/12/16 13:28 12/12/16 13:28 Results - Labs CBC & Chem 7: 12/12/16 04:49 12/12/16 04:49 Labs: Laboratory Last Values WBC 11.6 K/mm3 (4.5-11.0) H 12/12/16 04:49 RBC 5.01 M/mm3 (3.65-5.03) 12/12/16 04:49 Hgb 14.6 gm/dl (11.8-15.2) 12/12/16 04:49 Hct 45.6 % (35.5-45.6) 12/12/16 04:49 MCV 91 fl (84-94) 12/12/16 04:49 MCH 29 pg (28-32) 12/12/16 04:49 MCHC 32 % (32-34) 12/12/16 04:49 RDW 13.6 % (13.2-15.2) 12/12/16 04:49 Plt Count 226 K/mm3 (140-440) 12/12/16 04:49 Lymph % (Auto) 11.8 % (13.4-35.0) L 12/10/16 09:56 [place] % (Auto) 8.9 % (0.0-7.3) H 12/10/16 09:56 Eos % (Auto) 0.0 % (0.0-4.3) 12/10/16 09:56 Baso % (Auto) 0.3 % (0.0-1.8) 12/10/16 09:56 Lymph # 1.5 K/mm3 (1.2-5.4) 12/10/16 09:56 [place] # 1.1 K/mm3 (0.0-0.8) H 12/10/16 09:56 Eos # 0.0 K/mm3 (0.0-0.4) 12/10/16 09:56 Baso # 0.0 K/mm3 (0.0-0.1) 12/10/16 09:56 Seg Neutrophils % 79.0 % (40.0-70.0) H 12/10/16 09:56 Seg Neutrophils # 10.2 K/mm3 (1.8-7.7) H 12/10/16 09:56 Sodium 149 mmol/L (137-145) H 12/12/16 04:49 Potassium 3.8 mmol/L (3.6-5.0) 12/12/16 04:49 Chloride 112.7 mmol/L (98-107) H 12/12/16 04:49 Carbon Dioxide 23 mmol/L (22-30) 12/12/16 04:49 Anion Gap 17 mmol/L 12/12/16 04:49 BUN 18 mg/dL (9-20) 12/12/16 04:49 Creatinine 0.7 mg/dL (0.8-1.5) L 12/12/16 04:49 Estimated GFR > 60 ml/min 12/12/16 04:49 BUN/Creatinine Ratio 25.71 % 12/12/16 04:49 Glucose 94 mg/dL (75-100) 12/12/16 04:49 POC Glucose 96 (70-105) 12/12/16 07:37 Lactic Acid 1.6 mmol/L (0.7-2.0) 12/10/16 00:20 Calcium 8.2 mg/dL (8.4-10.2) L 12/12/16 04:49 Magnesium 2.8 mg/dL (1.7-2.3) H 12/09/16 22:13 Total Bilirubin 0.9 mg/dL (0.1-1.2) 12/12/16 04:49 AST 106 units/L (5-40) H 12/12/16 04:49 ALT 60 units/L (7-56) H 12/12/16 04:49 Alkaline Phosphatase 49 units/L (35-129) 12/12/16 04:49 Ammonia 55.0 umol/L (25-60) 12/10/16 00:07 Total Creatine Kinase 5631 units/L (55-170) H 12/12/16 04:49 CK-MB (CK-2) 14.2 ng/mL (0.0-4.0) H 12/09/16 22:13 CK-MB (CK-2) Rel Index 0.3 (0-4) 12/09/16 22:13 Total Protein 6.2 g/dL (6.3-8.2) L D 12/12/16 04:49 Albumin 3.9 g/dL (3.9-5) 12/12/16 04:49 Albumin/Globulin Ratio 1.7 % 12/12/16 04:49 TSH 0.099 mlU/mL (0.270-4.200) L 12/09/16 22:13 Thyroxine (T4) 5.2 ug/dL (4.0-12.0) 12/10/16 00:54 Urine Color Yellow (Yellow) 12/09/16 22:13 Urine Turbidity Cloudy (Clear) 12/09/16 22:13 Urine pH 5.0 (5.0-7.0) 12/09/16 22:13 Ur Specific [place] 1.029 (1.003-1.030) 12/09/16 22:13 Urine Protein 100 mg/dl mg/dL (Negative) 12/09/16 22:13 Urine Glucose (UA) Neg mg/dL (Negative) 12/09/16 22:13 Urine Ketones 20 mg/dL (Negative) 12/09/16 22:13 Urine Blood Lg (Negative) 12/09/16 22:13 Urine Nitrite Neg (Negative) 12/09/16 22:13 Urine Bilirubin Neg (Negative) 12/09/16 22:13 Urine Urobilinogen < 2.0 mg/dL (<2.0) 12/09/16 22:13 Ur Leukocyte Esterase Neg (Negative) 12/09/16 22:13 Urine WBC (Auto) 2.0 /HPF (0.0-6.0) 12/09/16 22:13 Urine RBC (Auto) 4.0 /HPF (0.0-6.0) 12/09/16 22:13 U Epithel Cells (Auto) < 1.0 /HPF (0-13.0) 12/09/16 22:13 Amorphous Crystals Few 12/09/16 22:13 Urine Mucus Few /HPF 12/09/16 22:13 Salicylates < 0.3 mg/dL (2.8-20.0) L 12/09/16 22:13 Urine Opiates Screen Presumptive negative 12/09/16 22:13 Urine Methadone Screen Presumptive negative 12/09/16 22:13 Acetaminophen < 15.0 ug/mL (10.0-30.0) 12/09/16 22:13 Ur Barbiturates Screen Presumptive negative 12/09/16 22:13 Ur Phencyclidine Scrn Presumptive negative 12/09/16 22:13 Ur Amphetamines Screen Presumptive negative 12/09/16 22:13 U Benzodiazepines Scrn Presumptive negative 12/09/16 22:13 Urine Cocaine Screen Presumptive positive 12/09/16 22:13 U Marijuana (THC) Screen Presumptive negative 12/09/16 22:13 Drugs of Abuse Note Disclamer 12/09/16 22:13 Plasma/Serum Alcohol < 0.01 gm% (0-0.07) 12/09/16 22:13
[2016-12-12] MEDS: LOVENOX SUB-Q SCH (21:18)
--- NOTE | 2016-12-12 23:41 | Consultation ---
History of Present Illness - Reason for Consult Reason for consult: psych management - Chief Complaint Chief complaint: CC: no answer 25 year old AM with unknown psych history presents to [facility] in an altered mental status state. Patient presented to the hospital and tested positive for cocaine. However he has not been responsive to the staff. When I saw him he did open his eyes to physical stimuli but did not track or have any interaction otherwise. Medications and Allergies Allergies Allergy/AdvReac Type Severity Reaction Status Date / Time No Known Allergies Allergy Verified 12/10/16 06:09 Home Medications Medication Instructions Recorded Confirmed Last Taken Type No Known Home Medications [No 12/12/16 12/12/16 Unknown History Reported Home Medications] Active Meds: Active Medications Enoxaparin Sodium (Lovenox) 40 mg SUB-Q QDAY@2200 [facility] Last Admin: 12/12/16 21:18 Dose: 40 mg Sodium Chloride (Nacl 0.9% 1000 Ml) 1,000 mls @ 250 mls/hr IV DIRECT [facility] Last Admin: 12/12/16 21:18 Dose: 150 mls/hr Phenytoin (Dilantin) 100 mg IV Q8HR [facility] Last Admin: 12/12/16 21:18 Dose: 100 mg Past psychiatric history - Past Medical History Past Medical History: other (AMS) - past Psychiatric treatment and history psychiatric treatment history: No prior psych history known given his lack of interaction. - Social History Social history: other (unknown social history given his lack of communication) Mental Status Exam - Vital signs Last Vital Signs Temp 98.7 F 12/12/16 21:08 Pulse 71 12/12/16 21:08 Resp 22 12/12/16 21:08 BP 115/67 12/12/16 21:08 Pulse Ox 99 12/12/16 21:08 - Exam Mini mental status exam(if necessary): 0-17 (No interaction. No gestures of psychosis or SI/HI.) Results Result Diagrams: 12/12/16 04:49 12/12/16 04:49 Abnormal lab results 12/12/16 12/12/16 Range/Units 04:49 04:49 WBC 11.6 H (4.5-11.0) K/mm3 Sodium 149 H (137-145) mmol/L Chloride 112.7 H (98-107) mmol/L Creatinine 0.7 L (0.8-1.5) mg/dL Calcium 8.2 L (8.4-10.2) mg/dL AST 106 H (5-40) units/L ALT 60 H (7-56) units/L Total Creatine Kinase 5631 H (55-170) units/L Total Protein 6.2 L D (6.3-8.2) g/dL All other labs normal. Assessment and Plan Assessment and plan: 25 year old AM with unknown psych history presents to [facility] in an altered mental status state. Patient presented to the hospital and tested positive for cocaine. However he has not been responsive to the staff. When I saw him he did open his eyes to physical stimuli but did not track or have any interaction otherwise. EEG has been done and there's some concern about seizure activity. Also there is some consideration about catatonia. -Given the lack of interaction it remains difficult to obtain a psych component to his presentation. One rec is to consider high dose ativan to help with two differentials- seizures and catatonia.
[2016-12-13] MEDS: NACL 0.9% 1000 ML 1,000 ML IV SCH ×4 (03:10→21:45)
[2016-12-13] MEDS: DILANTIN IV SCH ×2 (05:11→13:59)
--- NOTE | 2016-12-13 14:10 | Progress Note ---
Assessment and Plan Assessment and plan: 25-year-old [place]oc[place] male with no significant past medical history brought by his family after they found out that he was altered lying on bed recent afternoon. Patient was not able to communicate. Per his family the patient was healthy before this incident. * Acute metabolic and toxic encephalopathy-Resolved * Probable status epilepticus * Cocaine abuse * Leukocytosis * Rhabdomyolysis * Hypokalemia Plan * MRI reviewed and negative. * Clinically improved. Is not able to speak or convert Her to by mouth as patient is now tolerating by mouth but would only start on clear liquids and advance as tolerated in a.m. * stop IV dilantin and start patient on Keppra * EEG as significantly abnormal per neurologist * Continue IV fluids to 250 mL an hour monitor creatinine kinase and renal function * Speech therapy as ordered * Cultures reviewed and negative * Psychiatrist input noted. * Plan of care discussed with the family-mother * Anticipate discharge in a.m. * DVT and GI prophylaxis History Interval history: Patient seen and examined this morning in no acute distress, much more improved today. Is able to vocalize. Denies any chest pain, nausea, vomiting, diarrhea No fever noted blood pressure controlled No adverse events reported to me by nursing staff Hospitalist Physical - Physical exam Narrative exam: VITAL SIGNS: Reviewed. GENERAL: The patient appeared well nourished and normally developed. Vital signs as documented. HEAD: No signs of head trauma. EYES: Pupils are equal. Extraocular motions intact. EARS: Hearing grossly intact. MOUTH: Oropharynx is normal. NECK: No adenopathy, no JVD. CHEST: Chest with clear breath sounds bilaterally. No wheezes, rales, or rhonchi. CARDIAC: Regular rate and rhythm. S1 and S2, without murmurs, gallops, or rubs. VASCULAR: No Edema. Peripheral pulses normal and equal in all extremities. ABDOMEN: Soft, without detectable tenderness. No sign of distention. No rebound or guarding, and no masses palpated. Bowel Sounds normal. MUSCULOSKELETAL: Good range of motion of all major joints. Extremities without clubbing, cyanosis or edema. NEUROLOGIC EXAM: Alert. No focal sensory or strength deficits. Speech is normal Follows commands. PSYCHIATRIC: Mood normal SKIN: No rash or lesions. - Constitutional Vitals: Temp Pulse Resp BP Pulse Ox 98.6 F 60 18 123/82 100 12/13/16 11:42 12/13/16 11:42 12/13/16 11:42 12/13/16 11:42 12/13/16 11:42 Results - Labs CBC & Chem 7: 12/12/16 04:49 12/12/16 04:49 Labs: Laboratory Last Values WBC 11.6 K/mm3 (4.5-11.0) H 12/12/16 04:49 RBC 5.01 M/mm3 (3.65-5.03) 12/12/16 04:49 Hgb 14.6 gm/dl (11.8-15.2) 12/12/16 04:49 Hct 45.6 % (35.5-45.6) 12/12/16 04:49 MCV 91 fl (84-94) 12/12/16 04:49 MCH 29 pg (28-32) 12/12/16 04:49 MCHC 32 % (32-34) 12/12/16 04:49 RDW 13.6 % (13.2-15.2) 12/12/16 04:49 Plt Count 226 K/mm3 (140-440) 12/12/16 04:49 Lymph % (Auto) 11.8 % (13.4-35.0) L 12/10/16 09:56 [place] % (Auto) 8.9 % (0.0-7.3) H 12/10/16 09:56 Eos % (Auto) 0.0 % (0.0-4.3) 12/10/16 09:56 Baso % (Auto) 0.3 % (0.0-1.8) 12/10/16 09:56 Lymph # 1.5 K/mm3 (1.2-5.4) 12/10/16 09:56 [place] # 1.1 K/mm3 (0.0-0.8) H 12/10/16 09:56 Eos # 0.0 K/mm3 (0.0-0.4) 12/10/16 09:56 Baso # 0.0 K/mm3 (0.0-0.1) 12/10/16 09:56 Seg Neutrophils % 79.0 % (40.0-70.0) H 12/10/16 09:56 Seg Neutrophils # 10.2 K/mm3 (1.8-7.7) H 12/10/16 09:56 Sodium 149 mmol/L (137-145) H 12/12/16 04:49 Potassium 3.8 mmol/L (3.6-5.0) 12/12/16 04:49 Chloride 112.7 mmol/L (98-107) H 12/12/16 04:49 Carbon Dioxide 23 mmol/L (22-30) 12/12/16 04:49 Anion Gap 17 mmol/L 12/12/16 04:49 BUN 18 mg/dL (9-20) 12/12/16 04:49 Creatinine 0.7 mg/dL (0.8-1.5) L 12/12/16 04:49 Estimated GFR > 60 ml/min 12/12/16 04:49 BUN/Creatinine Ratio 25.71 % 12/12/16 04:49 Glucose 94 mg/dL (75-100) 12/12/16 04:49 POC Glucose 96 (70-105) 12/12/16 07:37 Lactic Acid 1.6 mmol/L (0.7-2.0) 12/10/16 00:20 Calcium 8.2 mg/dL (8.4-10.2) L 12/12/16 04:49 Magnesium 2.8 mg/dL (1.7-2.3) H 12/09/16 22:13 Total Bilirubin 0.9 mg/dL (0.1-1.2) 12/12/16 04:49 AST 106 units/L (5-40) H 12/12/16 04:49 ALT 60 units/L (7-56) H 12/12/16 04:49 Alkaline Phosphatase 49 units/L (35-129) 12/12/16 04:49 Ammonia 55.0 umol/L (25-60) 12/10/16 00:07 Total Creatine Kinase 5631 units/L (55-170) H 12/12/16 04:49 CK-MB (CK-2) 14.2 ng/mL (0.0-4.0) H 12/09/16 22:13 CK-MB (CK-2) Rel Index 0.3 (0-4) 12/09/16 22:13 Total Protein 6.2 g/dL (6.3-8.2) L D 12/12/16 04:49 Albumin 3.9 g/dL (3.9-5) 12/12/16 04:49 Albumin/Globulin Ratio 1.7 % 12/12/16 04:49 TSH 0.099 mlU/mL (0.270-4.200) L 12/09/16 22:13 Thyroxine (T4) 5.2 ug/dL (4.0-12.0) 12/10/16 00:54 Urine Color Yellow (Yellow) 12/09/16 22:13 Urine Turbidity Cloudy (Clear) 12/09/16 22:13 Urine pH 5.0 (5.0-7.0) 12/09/16 22:13 Ur Specific [place] 1.029 (1.003-1.030) 12/09/16 22:13 Urine Protein 100 mg/dl mg/dL (Negative) 12/09/16 22:13 Urine Glucose (UA) Neg mg/dL (Negative) 12/09/16 22:13 Urine Ketones 20 mg/dL (Negative) 12/09/16 22:13 Urine Blood Lg (Negative) 12/09/16 22:13 Urine Nitrite Neg (Negative) 12/09/16 22:13 Urine Bilirubin Neg (Negative) 12/09/16 22:13 Urine Urobilinogen < 2.0 mg/dL (<2.0) 12/09/16 22:13 Ur Leukocyte Esterase Neg (Negative) 12/09/16 22:13 Urine WBC (Auto) 2.0 /HPF (0.0-6.0) 12/09/16 22:13 Urine RBC (Auto) 4.0 /HPF (0.0-6.0) 12/09/16 22:13 U Epithel Cells (Auto) < 1.0 /HPF (0-13.0) 12/09/16 22:13 Amorphous Crystals Few 12/09/16 22:13 Urine Mucus Few /HPF 12/09/16 22:13 Salicylates < 0.3 mg/dL (2.8-20.0) L 12/09/16 22:13 Urine Opiates Screen Presumptive negative 12/09/16 22:13 Urine Methadone Screen Presumptive negative 12/09/16 22:13 Acetaminophen < 15.0 ug/mL (10.0-30.0) 12/09/16 22:13 Ur Barbiturates Screen Presumptive negative 12/09/16 22:13 Ur Phencyclidine Scrn Presumptive negative 12/09/16 22:13 Ur Amphetamines Screen Presumptive negative 12/09/16 22:13 U Benzodiazepines Scrn Presumptive negative 12/09/16 22:13 Urine Cocaine Screen Presumptive positive 12/09/16 22:13 U Marijuana (THC) Screen Presumptive negative 12/09/16 22:13 Drugs of Abuse Note Disclamer 12/09/16 22:13 Plasma/Serum Alcohol < 0.01 gm% (0-0.07) 12/09/16 22:13
--- NOTE | 2016-12-13 15:57 | Progress Note ---
Subjective - Reason for Consult Consult date: 12/13/16 Reason for consult: psychiatric follow up - Chief Complaint Chief complaint: During the first interview attempt today the patient needed time because his mother was changing his diaper. The second attempt to interview is successful. Patient is alert and oriented to person place time and situation. He has been treated for status epilepticus with Dilantin infusion and Keppra. He is followed by neurology. He states his incontinence of bowel and bladder are improving. He is able to move all of his extremities but reports feeling weak. He was informed of the results of his drug test. He states if the opiates weren't in there then "you didn't look hard enough." He discussed his drug use. He reports binging on cocaine and using increasing amounts over time. He states he is known for using much more than other people. He also reports using daily OxyContin 30 mg. He denies withdrawal symptoms. He states he's been using drugs since he was a teenager. He states that he wants to quit as he sees how it hurts his mother but he declines any resources to help with addiction. He normally smokes one pack of cigarettes per day and wants a nicotine patch. Mental Status Exam - Vital signs Last Vital Signs Temp 98.6 F 12/13/16 11:42 Pulse 60 12/13/16 11:42 Resp 18 12/13/16 11:42 BP 123/82 12/13/16 11:42 Pulse Ox 100 12/13/16 11:42 - Exam Narrative exam: He states he never thought that he could have a reaction such as this to the use of cocaine or any other drug. He denies IV drug Orientation: time, place, person Affect: other (superficial) Mood: congruent with affect Thought content: other (no suicidal or homicidal ideation) Thought Process: Intact Perceptions: none Speech: normal rate and pattern Concentration: distractible Motor activity: lethargic, other (no clonus, minimal rigidity) Level of consciousness: alert Memory: Intact Sleep Symptoms: None Appetite: decreased Interaction: cooperative Assessment and Plan Impression: Cocaine use disorder and opioid use disorder. Substance use is reported to have increased in severity over time resulting in severe consequences to his health. Recommendation: Patient will be provided resources to address addiction if amenable. Consider 21mg nicotine patch, patient smokes one pack per day.
[2016-12-13] MEDS: LOVENOX SUB-Q SCH (21:43)
[2016-12-13] MEDS: KEPPRA PO SCH (21:43)
[2016-12-13] MEDS: HABITROL TD SCH (22:15)
[2016-12-14] MEDS: NACL 0.9% 1000 ML 1,000 ML IV SCH (02:17)
[2016-12-14 06:14] LABS: Hematocrit 44.9 % (35.5-45.6); Hemoglobin 14.8 gm/dl (11.8-15.2); Mean Corpuscular HGB Conc 33 % (32-34); Mean Corpuscular Hemoglobin 29 pg (28-32); Platelet Count 231 K/mm3 (140-440); Red Blood Count 5.08 M/mm3 (3.65-5.03); Red Cell Distribution Width 12.7 % (13.2-15.2); White Blood Count 11.6 K/mm3 (4.5-11.0)
[2016-12-14 06:17] LABS: Anion Gap 16 mmol/L; BUN/Creatinine Ratio 16.66; Blood Urea Nitrogen 10 mg/dL (9-20); Calcium 7.2 mg/dL (8.4-10.2); Carbon Dioxide 23 mmol/L (22-30); Chloride 109.3 mmol/L (98-107); Glucose 131 mg/dL (75-100); Sodium 145 mmol/L (137-145)
[2016-12-14 06:20] LABS: Mean Corpuscular Volume 89 fl (84-94)
[2016-12-14 07:09] LABS: Creatine Kinase 1007 units/L (55-170)
--- NOTE | 2016-12-14 09:27 | Discharge Summary ---
Providers - Providers Date of Admission: 12/10/16 02:30 Date of discharge: 12/14/16 Attending physician: MUSA BERNARD MD 12/10/16 05:57 Speech Therapy Evaluation and Treat [CONS] Routine Reason For Exam: aphasic 12/10/16 05:58 Physical Therapy Evaluation and Treat [CONS] Routine Comment: Reason For Exam: weakness 12/10/16 05:59 Consult to Mental Health [CONS] Routine Reason For Exam: cocaine, AMS Place consult to:: mental health Notified:: yes Phone number called:: [phone] Was contact made?: Yes If yes, spoke with:: belkis Time called:: 09:52 12/10/16 06:05 Consult to Physician [CONS] Routine Consulting Provider: MICHAEL ELDRIDGE Reason For Exam: ams Place consult to:: neuro Notified:: yes Phone number called:: [phone] Was contact made?: Yes If yes, spoke with:: left msg with ally voice mail Time called:: 09:53 12/11/16 16:54 Consult to Physician [CONS] Routine Consulting Provider: BHARGAV MCCARTNEY Reason For Exam: AMS Place consult to:: Dr. Mccartney's office Notified:: Angelique [employer] Phone number called:: [phone] If yes, spoke with:: Sandro Time called:: 17:13 Comment:: Dr. Mccartney to return call within 15 minutes or repage 12/11/16 17:00 Consult to Physician [CONS] Routine Consulting Provider: BHARGAV MCCARTNEY Reason For Exam: [place], AMS Place consult to:: gaby, Notified:: service Was contact made?: Yes Primary care physician: [employer] [facility]ER Hospitalization Reason for admission: altered mental status Condition: Stable Hospital course: 25-year-old Khmer male with no significant past medical history brought by his family after they found out that he was altered lying on bed recent afternoon. Patient was not able to communicate. Per his family the patient was healthy before this incident. patient had MRI brain done and was negative, EEG showed abnormal findings. patient was stated on dilanting loading and subsequently switched to Keppra and his symptoms improved he was able to speak. He was seen by psychiatry and offers estimate to the patient's for detox program the patient refused. He states that he's been using drugs since he was a teenager." If you did not find opioids you probably did not look hot enough" . The patient states he also uses oxycodone. Again counseling greater than 50 minutes was provided to the patient as the mother was overtly concerned. Also noted rhabdomyolysis resolved. Advised the patient against driving according to the [place] law for at least 9 months until seen by neurologist and cleared. Also not to involving any diving activity all operating motorized equipment. * Acute metabolic and toxic encephalopathy-Resolved * status epilepticus * Cocaine abuse * Leukocytosis * Rhabdomyolysis * Hypokalemia Disposition: DISCHARGED TO HOME OR SELFCARE Time spent for discharge: 35 mins Core Measure Documentation - Palliative Care Palliative Care/ Comfort Measures: Not Applicable - Core Measures Any of the following diagnoses?: none - VTE Discharge Requirements Deep Vein Thrombosis/Pulmonary Embolism Present on Admission: No Exam - Physical Exam Narrative exam: VITAL SIGNS: Reviewed. GENERAL: The patient appeared well nourished and normally developed. Vital signs as documented. HEAD: No signs of head trauma. EYES: Pupils are equal. Extraocular motions intact. EARS: Hearing grossly intact. MOUTH: Oropharynx is normal. NECK: No adenopathy, no JVD. CHEST: Chest with clear breath sounds bilaterally. No wheezes, rales, or rhonchi. CARDIAC: Regular rate and rhythm. S1 and S2, without murmurs, gallops, or rubs. VASCULAR: No Edema. Peripheral pulses normal and equal in all extremities. ABDOMEN: Soft, without detectable tenderness. No sign of distention. No rebound or guarding, and no masses palpated. Bowel Sounds normal. MUSCULOSKELETAL: Good range of motion of all major joints. Extremities without clubbing, cyanosis or edema. NEUROLOGIC EXAM: Alert. No focal sensory or strength deficits. Speech is normal Follows commands. PSYCHIATRIC: Mood normal SKIN: No rash or lesions. - Constitutional Vitals: Temp Pulse Resp BP Pulse Ox 98.7 F 72 18 109/73 99 12/14/16 08:16 12/14/16 08:16 12/14/16 08:16 12/14/16 08:16 12/14/16 08:16 Plan Activity: no driving until cleared by PCP (according [place] law for 6 months until cleared by Neurologist. ), fall precautions Diet: regular Special Instructions: smoking cessation, other (strongly encouraged to enroll in Inpatient Rehab) Additional Instructions: No driving or operating any motorized vehicle, no Diving or swimiming till cleared by neurologist Follow up with: HANK LIZARRAGA MD [Primary Care Provider] - 7 Days BHARGAV MCCARTNEY MD [Staff Physician] - 7 Days Prescriptions: levETIRAcetam [Keppra TAB] 500 mg PO BID #60 tablet Nicotine [Habitrol] 21 mg TD QDAY #30 patch
[2016-12-14] MEDS: HABITROL TD SCH (10:38)
[2016-12-14] MEDS: KEPPRA PO SCH (10:38)
[2016-12-14] MEDS ORDERED: K-DUR PO SCH (11:00)
[2016-12-14 12:22] VITALS: BP 119/73
--- NOTE | 2016-12-14 14:08 | Progress Note ---
Subjective - Reason for Consult Consult date: 12/14/16 Reason for consult: psychiatric follow up - Chief Complaint Chief complaint: Patient is alert and oriented to person place time and situation and is being discharged today. He was treated for status epilepticus with Dilantin infusion and Keppra. He is up and moving around the room. He states he won't do drugs again. He declines any resources to help with addiction. Mental Status Exam - Vital signs Last Vital Signs Temp 98.3 F 12/14/16 12:21 Pulse 91 H 12/14/16 12:21 Resp 18 12/14/16 12:21 BP 119/73 12/14/16 12:21 Pulse Ox 98 12/14/16 12:21 - Exam Narrative exam: He is not suicidal or homicidal ideation. No auditory or visual hallucinations. Orientation: time, place, person Affect: normal Mood: appropriate Thought Process: Intact Perceptions: none Speech: normal rate and pattern Concentration: distractible Motor activity: normal Level of consciousness: alert Memory: Intact Sleep Symptoms: None Interaction: cooperative Assessment and Plan Impression: Cocaine use disorder and opioid use disorder. Substance use is reported to have increased in severity over time resulting in severe consequences to his health. Recommendation: Patient will be provided resources to address addiction if amenable. He declined resources at the time of discharge.
== END 2016-12-14 13:13 | disposition home or self-care (01) | DRG 100 ==
LOC: ED 19:55 → 4A 12-10 02:30
PROVIDERS: ADMIT Internal Medicine; ATTEND Internal Medicine
DX: G40.901 Epilepsy, unspecified, not intractable, with status epilepticus (principal); G92 Toxic encephalopathy; M62.82 Rhabdomyolysis; F14.10 Cocaine abuse, uncomplicated; R74.8 Abnormal levels of other serum enzymes; R94.6 Abnormal results of thyroid function studies; E86.0 Dehydration; F17.210 Nicotine dependence, cigarettes, uncomplicated; F06.1 Catatonic disorder due to known physiological condition; D72.829 Elevated white blood cell count, unspecified; E87.6 Hypokalemia; F11.99 Opioid use, unspecified with unspecified opioid-induced disorder; Z53.20 Procedure and treatment not carried out because of patient's decision for unspecified reasons; Z71.51 Drug abuse counseling and surveillance of drug abuser
CPT/HCPCS: 36415; 70450; 70551; 80048; 80053; 80307; 80320; 81001; 82140; 82550; 82553; 82962; 83735; 84436; 84443; 85025; 85027; 87040; 93005; 93010; 95819; 96360; G0480; J1165; J1650; J7030; J7050